=== PATIENT | male | born 1950 | race Caucasian/White ===

== ENCOUNTER → 2020-06-02 13:37 | Outpatient (CLI) | payer MEDICARE, OTHER | END | disposition home or self-care (01) | LOC: D.CT 13:00 | PROVIDERS: ATTEND Nurse Practitioner Family | DX: M54.5 Low back pain (principal) ==

== ENCOUNTER 2020-06-15 10:40 | Day surgery (SDC) | payer MEDICARE, OTHER ==
[~2020-06-15] VITALS: Ht 182.9 cm; Wt 105.6 kg
--- NOTE | ~2020-06-15 | HEMODYNAMI ---
PATIENT:ALBERTO CARRILLO MEDICAL RECORD: [id number] : 52 LOCATION:[facility] ADMISSION DATE: 06/15/20 Generatedon:113:31 Patient name: ALBERTO CARRILLO Patient #: [id number] SSN: B: 1950 Date of study: 06/15/2020 Page: Of Hemodynamic Procedure Report Patient Data Patient Demographics Procedure consent was obtained First Name: ALBERTO Gender: Male Last Name: GERARDO : 1950 Patient #: [id number] Age: 69 year(s) Race: Unknown Additional ID: [id number] Contact details [address]: [address] [place] [address] State: [place] City: [place] Zip code: [address] Past Medical History Performed procedures and imaging results Date Procedure Procedure Results Comments Stress testing Positive->Intermediate with SPECT MPI risk History of disease Date Diagnosis Comments CAD Allergies: No known allergies Admission Admission Data Admission Date: 06/15/2020 Admission Time: 10:40 Arrival Date: 06/15/2020 Arrival Time: 0:00 Height (in.): 72 BSA: 2.28 (m2) Height (cm.): 182.88 BMI: 31.69 (kg/m2) Weight (lbs.): 233.69 Weight (kg.): 106 Lab Results Lab Result Date: 06/15/2020 Lab Result Time: 0:00 Biochemistry Name Units Result Min Max BUN mg/dl 17 --(---*)-- 7 18 Creatinine mg/dl 0.8 --(-*--)-- 0.6 1.3 eGFR ml/min 90 --(*---)-- 90 120 NONAFRICAN CBC Name Units Result Min Max Hematocrit % 41.9 -*(----)-- 42 54 Hemoglobin g/dl 14.1 --(*---)-- 13.5 17.5 Procedure Procedure Types Cath Procedure Diagnostic Procedure [facility] w/Coronaries Aortic Root Angiography Sedation Charges Moderate Sedation 25-39 minutes Procedure Description Procedure Date Procedure Date: 06/15/2020 Procedure Start Time: 13:08 Procedure End Time: 13:29 Procedure Staff Name Function Ahsan Art MD Performing Physician Katrin Palomares RT Monitor Celeste Oates RT Scrub Sidra Ram RN Nurse Procedure Data Cath Procedure Fluoroscopy Diagnostic fluoroscopy Total fluoroscopy Time: 6.3 time: 6.3 min min Diagnostic fluoroscopy Total fluoroscopy dose: 806 dose: 806 mGy mGy Contrast Material Contrast Material Type Amount (ml) Isovue 300 82 Entry Location Entry Primary Successful Side Size Upsize Upsize Entry Closure Succes sful Closure Location (Fr) 1 (Fr) 2 (Fr) Remarks Device Remarks Radial Right 6 Fr artery Short Estimated blood loss: 10 ml Diagnostic catheters Device Type Used For End Catheter Placement DIAGNOSTIC [place] 110cm 5 Procedure Fr catheter ([id number]) DIAGNOSTIC AR MOD 5Fr Procedure Catheter ([id number]) DIAGNOSTIC AR2 MOD 5 Fr Procedure catheter ([id number]) DIAGNOSTIC Pigtail 5Fr Ventriculography catheter ([id number]) Procedure Complications No complications Procedure Medications Medication Administration Route Dosage Oxygen etCO2 Nasal cannula 2 l/min Lidocaine 2% added to field 20 Heparin Flush Bag added to field 2 bags (1000units/500ml NS) 0.9% NaCl I.V. 100 ml/hr Versed I.V. 1 mg Fentanyl I.V. 50 mcg Versed I.V. 1 mg Fentanyl I.V. 50 mcg Radial Cocktail I.A. 1 syringe (Verapamil 2mg/Nitro 400mcg/Heparin 1500units) Versed I.V. 1 mg Fentanyl I.V. 50 mcg Versed I.V. 1 mg Fentanyl I.V. 50 mcg Hemodynamics Rest BSA: 2.28 (m2) HGB: 14.1 (g/dl) O2 Consumption: Estimated: 247.58 (ml/min) O2 Co nsumption indexed: Estimated:108.59 (ml/min/m) Heart Rate: 50 (bpm) Pressure Samples Time Site Value (mmHg) Purpose Heart Use Rate(bpm) 13:10 LV 100/2,13 Snapshot 54 Gradients Valve Time Site Site Mean SEP/DFP Peak To Heart Use 1 2 (mmHg) (sec/min) Peak Rate (mmHg) (bpm) Aortic 13:11 LV AO 54 Snapshots Pre Cath Intra NCS Post Cath Vital Signs Time Heart Resp SPO2 etCO2 NIBP (mmHg) Rhythm Pain Sedation Rate (ipm) (%) (mmHg) Status Level (bpm) 12:56:14 49 15 100 37 141/75(120) SB 0 (11) 10(A) , No pain 13:00:26 50 11 97 38 122/71(97) SB 0 (11) 10(A) , No pain 13:04:46 51 11 97 39.5 128/68(97) SB 0 (11) 10(A) , No pain 13:09:02 53 13 97 36.6 126/70(104) SB 0 (11) 10(A) , No pain 13:13:16 56 11 96 41.8 104/60(80) SB 0 (11) 9(A) , No pain 13:17:30 55 12 96 42.5 100/64(85) SB 0 (11) 9(A) , No pain 13:21:44 56 12 94 13.4 117/60(73) SB 0 (11) 10(A) , No pain 13:26:00 54 8 96 42.5 114/63(89) SB 0 (11) 10(A) , No pain 13:30:18 54 8 96 16.4 110/59(89) SB 0 (11) 10(A) , No pain Medications Time Medication Route Dose Verified Delivered Reason Notes Effectiveness by by 12:58:48 Oxygen etCO2 2 l/min Ahsan Buffie used for Nasal Rubens Ram RN procedure cannula 12:58:56 Lidocaine 2% added 20ml Ahsan Ahsan for local to vial Rubens Art MD anesthetic field 12:59:01 Heparin Flush added 2 bags Ahsan Ahsan used for Bag to Rubens Art MD procedure (1000units/500ml field NS) 12:59:10 0.9% NaCl I.V. 100 Ahsan Buffie Per ml/hr Rubens Ram RN physician 13:00:44 Versed I.V. 1 mg Ahsan Buffie for sedation Rubens Ram RN 13:00:50 Fentanyl I.V. 50 mcg Ahsan Buffie for sedation Rubens Ram RN 13:05:06 Versed I.V. 1 mg Ahsan Buffie for sedation Rubens Ram RN 13:05:10 Fentanyl I.V. 50 mcg Ahsan Buffie for sedation Rubens Ram RN 13:10:00 Radial Cocktail I.A. 1 Ahsan Ahsan for (Verapamil syringe Rubnes Art MD vasodilation 2mg/Nitro 400mcg/Heparin 1500units) 13:10:05 Versed I.V. 1 mg Ahsan Buffie for sedation Rubens Ram RN 13:10:08 Fentanyl I.V. 50 mcg Ahsan Buffie for sedation Rubens Ram RN 13:20:42 Versed I.V. 1 mg Ahsan Buffie for sedation Rubens Ram RN 13:20:45 Fentanyl I.V. 50 mcg Ahsan Buffie for sedation Rubens Ram RN Procedure Log Time Note 12:31:33 Informed consent obtained and on chart 12:31:57 Procedure Status Elective Heart Cath (OP). 12:31:59 Time tracking: Regular hours (M-F 7:00 - 5:00) 12:32:03 Plan of Care:Hemodynamics will remain stable., Cardiac rhythm will remain stable., Comfort level will be maintained., Respiratory function will remain adequate., Patient/ family verbilizes understanding of procedure., Procedure tolerated without complication., Recovers from procedure without complications.. 12:32:59 H&P Date Dictated: 05/26/2020 Within 30 days and on chart., H&P Addendum completed by physician on day of procedure. (MUST COMPLETE FOR ALL OUTPATIENTS). 12:33:09 Patient allergic to No known allergies 12:35:52 Lab Result : BUN 17 mg/dl 12:35:52 Lab Result : eGFR NONAFRICAN 90 ml/min 12:35:52 Lab Result : Creatinine 0.8 mg/dl 12:35:52 Lab Result : Hematocrit 41.9 % 12:35:52 Lab Result : Hemoglobin 14.1 g/dl 12:35:59 Patient Weight : 233.69 lbs 12:36:03 Patient Height : 72 inches 12:36:09 Arrival Date: 06/15/2020 12:00:00 AM 12:39:12 Stress Test: yes; abnormal INFERIOR AND APICAL 12:39:55 Celeste Oates RT(R) sent for patient. Start room use. 12:48:05 Patient received from Pre/Post Procedure Room to CCL 1 Alert and oriented. Tansferred to table in Supine position. 12:48:06 Warm blankets applied, and desean hugger turned on for patient comfort. 12:48:06 Correct patient and procedure confirmed by team. 12:48:07 ECG and BP/O2 sat monitors applied to patient. 12:48:08 Pre-op teaching completed and patient verbalized understanding. 12:48:08 Pre-procedure instructions explained to patient. 12:48:10 Family in patients room. 12:48:11 Patient NPO since Midnight. 12:48:13 Is the patient allergic to Iodine/contrast media? No. 12:48:14 Is patient on blood thinner?Yes 12:48:29 LAST DOSE OF ELIQUIS ON SATURDAY 12:48:35 Patient diabetic? Yes. 12:48:36 If diabetic: On Metformin? Yes 12:48:39 If on Metformin: Last Dose? 06/13/2020 12:48:42 Previous problem with sedation/anesthesia? No ? 12:48:44 Snore? Yes 12:48:45 Sleep apnea? No 12:48:46 Deviated septum? No 12:48:49 Opens mouth fully? Yes 12:48:50 Sticks out tongue? Yes 12:48:52 Airway obstruction? No ? 12:48:54 Dentures? No ? 12:54:55 Vital chart was started 12:54:56 Baseline sample Acquired. 12:54:59 Rhythm: sinus bradycardia 12:55:00 Full Disclosure recording started 12:58:24 Patient pain scale 0/10 ?. 12:58:34 IV patent on arrival in left forearm with 0.9% NaCl at [facility]. 12:58:38 Lab results completed and on chart. 12:58:45 Right Radial & Right Groin area was prepped with chlora-prep and draped in sterile fashion 12:58:46 Alarms reviewed by R. N. 12:58:46 Sharps counted by scrub and verified by R.N. 12:58:47 Physician arrived 12:58:48 Oxygen 2 l/min etCO2 Nasal cannula was administered by Sidra Ram RN; used for procedure; Verbal order read back and verified. 12:58:49 --------ALL STOP TIME OUT------ 12:58:50 Final Timeout: patient, procedure, and site verified with staff and physician. All members of the team are in agreement. 12:58:53 Right Radial & Right Groin site verified by team. 12:58:56 Lidocaine 2% 20ml vial added to field was administered by Ahsan Art MD; for local anesthetic; Verbal order read back and verified. 12:58:59 Fire Safety Assessment: A--An alcohol-based skin anteseptic being used preoperatively., C--Open oxygen or nitrous oxide is being used., D--An ESU, laser, or fiber-optic light is being used. 12:59:01 Heparin Flush Bag (1000units/500ml NS) 2 bags added to field was administered by Ahsan Art MD; used for procedure; Verbal order read back and verified. 12:59:04 Physical assessment completed. ASA score P 2 - A patient with mild systemic disease as per Ahsan Art MD. 12:59:10 0.9% NaCl 100 ml/hr I.V. was administered by Sidra Ram RN; Per physician; Verbal order read back and verified. 12:59:12 1) 90+ Normal kidney functon but urine findings or structural abnormalities or genetic trait point to kidney disease. 12:59:18 Maximum allowable contrast dose (3.7 X eGFR X 0.75)250 ml. 12:59:25 Sedation plan: IV Moderate Sedation Medication:Versed, Fentanyl 12:59:41 Baseline sample Acquired. 12:59:55 Use device set Radial Dx or PCI 12:59:57 ACIST Syringe (59243) opened to sterile field. 12:59:57 Medline Cath Pack ([id number]) opened to sterile field. 12:59:58 Bag Decanter (2002) opened to sterile field. 12:59:58 ACIST Hand Control (75347) opened to sterile field. 12:59:59 ACIST Manifold (42950) opened to sterile field. 13:00:01 MBrace Wrist Support (078973825) opened to sterile field. 13:00:02 NEEDLE Cook 21G 4cm Radial (W44792) opened to sterile field. 13:00:06 EMERALD Guide Wire (502-643) opened to sterile field. 13:00:07 SHEATH 6FR RAIN (2526045) opened to sterile field. 13:00:44 Versed 1 mg I.V. was administered by Sidra Ram RN; for sedation; Verbal order read back and verified. 13:00:50 Fentanyl 50 mcg I.V. was administered by Sidra Ram RN; for sedation; Verbal order read back and verified. 13:05:06 Versed 1 mg I.V. was administered by Sidra Ram RN; for sedation; Verbal order read back and verified. 13:05:10 Fentanyl 50 mcg I.V. was administered by Sidra Ram RN; for sedation; Verbal order read back and verified. 13:07:47 Procedure started. 13:08:08 Local anesthetic to right radial artery with Lidocaine 2% by Ahsan Art MD.INITIAL ACCESS ONLY 13:08:25 A 6 Fr Short sheath was inserted into the Right Radial artery 13:08:47 Zero performed for pressure channel P1 13:10:00 Radial Cocktail (Verapamil 2mg/Nitro 400mcg/Heparin 1500units) 1 syringe I.A. was administered by Ahsan Art MD; for vasodilation; Verbal order read back and verified. 13:10:05 Versed 1 mg I.V. was administered by Sidra Ram RN; for sedation; Verbal order read back and verified. 13:10:08 Fentanyl 50 mcg I.V. was administered by Sidra Ram RN; for sedation; Verbal order read back and verified. 13:11:07 A DIAGNOSTIC Greenwood 110cm 5 Fr catheter (379594) was advanced over the wire and used for Procedure. 13:11:11 LV angiography performed. 13:11:26 EF : 60 % 13:12:15 LCA angiography performed. 13:13:58 Catheter removed. 13:14:13 A DIAGNOSTIC AR MOD 5Fr Catheter (195689T) was advanced over the wire and used for Procedure. 13:16:18 Catheter removed. 13:17:06 A DIAGNOSTIC AR2 MOD 5 Fr catheter (596596H) was advanced over the wire and used for Procedure. 13:17:18 RCA angiography performed. 13:18:36 Catheter removed. 13:19:01 A DIAGNOSTIC Pigtail 5Fr catheter (557004D) was advanced over the wire and used for Ventriculography. 13:20:42 Versed 1 mg I.V. was administered by Sidra Ram RN; for sedation; Verbal order read back and verified. 13:20:45 Fentanyl 50 mcg I.V. was administered by Sidra Ram RN; for sedation; Verbal order read back and verified. 13:21:46 Aortic Root visualized 13:22:48 Catheter removed. 13:24:24 ZEPHYR REGULAR TR BAND (228790) opened to sterile field. 13:25:04 Procedure ended.(Physican Out) 13:25:16 Fluoroscopy time 06.30 minutes. 13:25:48 Fluoroscopy dose: 806 mGy 13:25:48 Flurop Dose total: 806 13:25:55 Dose Area Product 70877 mGy/cm. 13:26:02 Contrast amount:Isovue 300 82ml. 13:26:05 Maximum allowable dose exceeded? No. 13:26:07 Sharps counted by scrub and verified by R.N. 13:26:10 [place] band inflated with 10cc of air. 13:26:12 Insertion/operative site no bleeding no hematoma. 13:26:50 Post-procedure physical assessment completed. ASA score P 3 - A patient with severe systemic disease as per Ahsan Art MD. 13:27:01 Post procedure rhythm: sinus rhythm 13:27:45 Estimated blood loss: 10 ml 13:27:51 Post procedure instruction explained to patient.Patient verbalizes understanding. 13:28:22 Procedure type changed to Cath procedure, Diagnostic procedure, LHC, C w/Coronaries, Aortic Root Angiography, Sedation Charges, Moderate Sedation 25-39 minutes 13:28:25 Procedure and supply charges have been captured, reviewed, submitted and are correct. 13:29:21 Procedure Complication : No complications 13:29:23 Vital chart was stopped 13:29:26 [facility] Findings: MVD- CABG consult 13:29:44 See physician's report for complete and final results. 13:29:47 Report given to Pre/Post Procedure Room. 13:29:51 Patient transfered to Pre/Post Procedure Room with Stretcher. 13:29:53 Procedure ended. 13:29:53 Full Disclosure recording stopped 13:29:56 End room use (Document Last) 13:30:31 End room use (Document Last) Device Usage Item Name Manufacture Quantity Catalog Hospital Part Current Minima l Lot# / Number Charge Number Stock Stock Serial# Code ACIST Acist 1 59911 [id number] 462319 255631 20 [employer] (92810) Reissued Inc Medline Medline 1 [id number] 129698 35271 104587 5 Cath Pack ([id number]) Bag Microtek 1 103352 18727 541840 5 Decanter Medical Inc. () ACIST Hand Acist 1 08624 986241 599447 813596 5 Control Medical (76300) Systems Inc ACIST Acist 1 13312 137203 021282 480516 5 Manifold Medical (21583) Systems Inc MBrace Advanced 1 140-0250-00 902231 60608 487341 5 Wrist Vascular Support Dynamics ([id number]) NEEDLE Cook Cook Medical 1 [id number] 284476 822381 690728 5 21G 4cm Radial (I85509) EMERALD Cardinal 1 502-455 842492 084069 941031 5 Guide Wire Health (502-455) SHEATH 6FR Cardinal 1 8971561 127338 9486041 885224 5 [facility] Health (4724555) DIAGNOSTIC Terumo 1 40-0715 671984 567038 731341 5 Greenwood 110cm 5 Fr catheter (526602) DIAGNOSTIC Cardinal 1 [id number] 775501 217049 598839 15 AR MOD 5Fr Health Catheter (414774U) DIAGNOSTIC Cardinal 1 238100A 132156 423620 602625 20 AR2 MOD 5 Health Fr catheter (520296J) DIAGNOSTIC Cardinal 1 [id number] 669156 876727 073260 5 Pigtail 5Fr Health catheter (869273H) ZEPHYR Cardinal 1 193289 775253 6506661 363494 5 REGULAR TR Health BAND (730735) Signature Audit Burton Stage Time Signature Unsigned Intra-Procedure 06/15/2020 Katrin Palomares 1:30:31 PM RT(R) Intra-Procedure 06/15/2020 Sidra Ram RN 1:30:56 PM Intra-Procedure 06/15/2020 Ahsan Art MD 1:31:44 PM [facility] [address] [place] [address]
[2020-06-15 11:22] VITALS: BP 146/70; Ht 182.9 cm; Wt 105.6 kg
[2020-06-15] MEDS ORDERED: XANAX1 MG PO (11:33)
[2020-06-15] MEDS ORDERED: ELIQUIS5 MG PO (11:33)
[2020-06-15] MEDS ORDERED: COZAAR100 MG PO (11:35)
[2020-06-15] MEDS ORDERED: ZOCOR20 MG PO (11:35)
[2020-06-15] MEDS ORDERED: STERAPRED 5MG 65 M1 PO (11:35)
[2020-06-15] MEDS ORDERED: LINZESS72 MCG PO (11:36)
[2020-06-15] MEDS ORDERED: MOBIC7.5 MG PO (11:37)
[2020-06-15] MEDS ORDERED: PROTONIX40 MG PO (11:37)
[2020-06-15] MEDS ORDERED: GLUCOPHAGE500 MG PO (11:37)
[2020-06-15] MEDS ORDERED: HYDROCHLOROTH12.5 M1 PO (11:38)
[2020-06-15] MEDS ORDERED: TRUSOPT 2 % OPT10 ML EACH EYE (11:42)
[2020-06-15 11:55] LABS: BASOPHILS 0.4 % (0-2); EOSINOPHILS 2.1 % (0-7); HEMATOCRIT 41.9 % (42.0-54.0); HEMOGLOBIN 14.1 g/dL (13.5-17.5); IMMATURE GRANULOCYTES 0.1 % (0-5); LYMPHOCYTE ABS# 1.49 10x3/uL (1.32-3.57); LYMPHOCYTES 21.9 % (15-50); MCH 30.1 pg (26.0-34.0); MCHC 33.7 g/dL (31.0-37.0); MCV 89.5 fL (80.0-100.0); MEAN PLATELET VOLUME 8.6 fL (7.4-10.4); MONOCYTES 10.2 % (2-11); NEUTROPHIL ABS# 4.43 10x3/uL (1.78-5.38); NEUTROPHILS 65.3 % (40-80); PLATELET COUNT 158 10x3/uL (130-400); RBC 4.68 10x6/uL (4.20-6.10); RDW 13.6 % (11.5-14.5); WBC 6.8 10x3/uL (4.8-10.8)
[2020-06-15 11:57] LABS: ALT (SGPT) 48 U/L (10-68); CALC OSMOLALITY 284 mosm/kg (275-300); CALCIUM 8.8 mg/dL (8.5-10.1); CARBON DIOXIDE 25.9 mmol/L (21.0-32.0); CHLORIDE - SERUM 105 mmol/L (98-107); CHOL - HDL RATIO 4.3 ratio (2.3-4.9); CHOLESTEROL, TOTAL 179 mg/dL (0-200); CREATININE - SERUM 0.8 mg/dL (0.6-1.3); GLUCOSE 142 mg/dL (74-106); HDL CHOLESTEROL 42 mg/dL (32-96); LDL CHOLESTEROL 93 mg/dL (0-100); LDL-HDL RATIO 2.2 ratio (1.5-3.5); POTASSIUM - SERUM 4.1 mmol/L (3.5-5.1); SODIUM 141 mmol/L (136-145); TRIGLYCERIDE 224 mg/dL (30-200); UREA NITROGEN 17 mg/dL (7-18); eGFR NON AFRICAN AMERICAN > 90 mL/min (90-120)
--- NOTE | 2020-06-15 13:39 | NUR ---
ARRIVES TO ROOM VIA STRETCHER S/P HEART CATH. SEE REGISTERED NURSE SURGICAL SERVICES, PT ON MONITORS APPLIED ALARMS ON, IV INFUSING PER ORDERS, DENIES PAIN OR NEEDS AT PRESENT, SPOUSE AT BEDSIDE, CALL LIGHT WITHIN REACH, SPRITE GIVEN PER PT REQUEST
--- NOTE | 2020-06-15 13:55 | NUR ---
RESTING QUIETLY , SITTING UP RIGHT, VSS, SB NO ECTOPY, RIGHT WRIST WITH ZBAND IN PLACE NO BLEEDING OR OOZING , RADIAL PULSE PALPABLE, CAP REFILL WNL , MOVES DIGITS , DENIES PAIN OR NEEDS, IV INFUSING PER ORDERS, SPOUSE AT BEDSIDE, CALL LIGHT WITHIN REACH
--- NOTE | 2020-06-15 14:10 | NUR ---
AAOX3,VSS, SB WITH NO ECTOPY BP 163/89, RIGHT WRIST ZBAND C/D/I NO BLEEDING OR OOZING NOTED, RADIAL PULSE PALPABLE, CAP REFILL WNL, MOVES ALL DIGITS , DENIES PAIN OR NEEDS, IV INFUSING PER ORDERS, DENIES BATHROOM NEEDS, SPOUSE IN ROOM , UP DATED ON PLAN OF CARE AND DISCHARGE TIME , CALL LIGHT WITHIN REACH
--- NOTE | 2020-06-15 14:25 | NUR ---
EYES CLOSED AROUSES EASILY, VSS , SB, RIGHT WRIST ZBAND INPLACE NO BLEEDING OR OOZING NOTED, RADIAL PULSE PALPABLE, ARM WARM AND DRY, CAP REFILL WNL, MOVES ALL DIGITS , PT DENIES PAIN OR NEEDS, IV INFUSING PER ORDERS, CALL LIGHT WITH IN REACH, DENIES BATHROOM NEEDS AT PRESENT
--- NOTE | 2020-06-15 15:00 | NUR ---
DR GUEVARA AT BEDSIDE TO SEE PT AND SPOUSE
--- NOTE | 2020-06-15 15:00 | NUR ---
3CC AIR RELEASED FROM ZBAND NO BLEEDING OR OOZING NOTED, RADIAL PULSE PALPABLE, CAP REFILL WNL, MOVES ALL DIGITS, DENIES PAIN. CALL LIGHT WITHIN REACH
--- NOTE | 2020-06-15 15:30 | NUR ---
AWAKE AND ALWERT , VSS, SB, RIGHT WRIST STABLE WITH NO BLEEDING OR OOZING RADIAL PULSE PALABLE, CAP REFILL WNL, MOVES ALL DIGITS, WARM ARM WITH INTACT SENSATION, REMAINING 4CC AIR RELEASED FROM ZBAND WITH NO BLEEDING OR OOZING , IV INFUSING PER ORDERS, DISCHARGE TEACHING STARTED, PT DENIES PAIN OR NEEDS, PT UP TO DRESS AND AMBULATED TO BATHROOM TO VOID WITHOUT DIFFICULTY , CALL LIGHT WITHIN REACH
--- NOTE | 2020-06-15 15:45 | NUR ---
IV REMOVED PER ORDERS CATHETER INTACT 2 X 2 DRESSING PLACED. RIGHT WRIST WITH ALL AIR REMOVED FROM ZBAND WITHOUT BLEEDING OR OOZING , RADIAL PULSE PALPABLE CAP REFILL WNL MOVES ALL DIGITS , DENIES PAIN OR NEEDS, DISCHARGE TEACHING IS COMPLETE PT AND SPOUSE VERBALIZED UNDERSTANDING , ALL QUESTIONS AND CONCERNS ADDRESSED, VSS, SB PER MONITOR.
--- NOTE | 2020-06-15 16:00 | NUR ---
PT DISCHARGED PER ORDERS, TAKEN TO PRIVATE VEHICLE VIA WHEELCHAIR, PT VOICED NO COMPLAINTS , DENIES PAIN OR NEEDS.
== END 2020-06-15 16:00 | disposition home or self-care (01) ==
LOC: D.CATH 10:40
PROVIDERS: ATTEND Internal Medicine Cardiovascular Disease
DX: I20.8 Other forms of angina pectoris (principal); R94.39 Abnormal result of other cardiovascular function study; I48.91 Unspecified atrial fibrillation; I73.9 Peripheral vascular disease, unspecified; R06.09 Other forms of dyspnea

== ENCOUNTER 2020-07-12 11:44 | Inpatient (IN) | payer MEDICARE, OTHER ==
[2020-07-11 14:37] LABS: BILIRUBIN NEGATIVE (NEGATIVE); KETONE NEGATIVE (NEGATIVE); NITRITE NEGATIVE (NEGATIVE); UROBILINOGEN NORMAL mg/dL (< 2)
[2020-07-11 14:41] LABS: WHITE CELLS - URINE 0-5 HPF (0-1)
[2020-07-11 14:42] LABS: BACTERIA FEW HPF (NONE SEEN); SQUAMOUS EPITHELIAL NONE SEEN HPF (0-4)
[2020-07-11 15:32] LABS: BASOPHILS 0.3 % (0-2); EOSINOPHILS 1.2 % (0-7); HEMATOCRIT 43.4 % (42.0-54.0); HEMOGLOBIN 14.8 g/dL (13.5-17.5); IMMATURE GRANULOCYTES 0.1 % (0-5); LYMPHOCYTE ABS# 1.26 10x3/uL (1.32-3.57); LYMPHOCYTES 18.7 % (15-50); MCH 30.8 pg (26.0-34.0); MCHC 34.1 g/dL (31.0-37.0); MCV 90.2 fL (80.0-100.0); MEAN PLATELET VOLUME 8.8 fL (7.4-10.4); MONOCYTES 9.1 % (2-11); NEUTROPHIL ABS# 4.76 10x3/uL (1.78-5.38); NEUTROPHILS 70.6 % (40-80); PLATELET COUNT 158 10x3/uL (130-400); RBC 4.81 10x6/uL (4.20-6.10); RDW 13.3 % (11.5-14.5); WBC 6.7 10x3/uL (4.8-10.8)
[2020-07-11 15:40] LABS: APTT 30.8 SECONDS (22.8-39.4); INR 1.07 (0.85-1.17); PROTIME 12.8 SECONDS (11.6-15.0)
[2020-07-11 16:31] LABS: ALBUMIN 4.1 g/dL (3.4-5.0); ALKALINE PHOSPHATASE 73 U/L (30-120); ALT (SGPT) 35 U/L (10-68); BILIRUBIN - TOTAL 1.04 mg/dL (0.2-1.3); CALC OSMOLALITY 284 mosm/kg (275-300); CALCIUM 8.9 mg/dL (8.5-10.1); CARBON DIOXIDE 28.8 mmol/L (21.0-32.0); CHLORIDE - SERUM 103 mmol/L (98-107); CHOLESTEROL, TOTAL 164 mg/dL (0-200); CREATININE - SERUM 0.8 mg/dL (0.6-1.3); GLUCOSE 113 mg/dL (74-106); PHOSPHOROUS 3.9 mg/dL (2.5-4.9); POTASSIUM - SERUM 4.4 mmol/L (3.5-5.1); PRO BNP 31 pg/mL (0-125); SODIUM 142 mmol/L (136-145); T4 THYROXIN - FREE 0.95 ng/dL (0.76-1.46); THYROID STIMULATING HORMONE 1.25 uIU/mL (0.36-3.74); UREA NITROGEN 16 mg/dL (7-18); URIC ACID 4.5 mg/dL (2.6-7.2); eGFR NON AFRICAN AMERICAN > 90 mL/min (90-120)
[~2020-07-12] VITALS: Ht 182.9 cm; Wt 110.6 kg
[~2020-07-12 11:44] MED LIST: BAYER CHEWABLE81 MG PO; COZAAR100 MG PO; ELIQUIS5 MG PO; GLUCOPHAGE500 MG PO; HYDROCHLOROTH12.5 M1 PO; LINZESS72 MCG PO; MOBIC7.5 MG PO; PROTONIX40 MG PO; STERAPRED 5MG 65 M1 PO; TRUSOPT 2 % OPT10 ML EACH EYE; XANAX1 MG PO; ZOCOR20 MG PO
[2020-07-14] VITALS (45 sets, daily range): BP systolic 109–145; BP diastolic 42–75; BMI 31.0; BMI 30.8
[2020-07-14] MEDS ORDERED: ELIQUIS5 MG PO (06:16)
[2020-07-14 06:25] LABS: BILIRUBIN NEGATIVE (NEGATIVE); KETONE NEGATIVE (NEGATIVE); NITRITE NEGATIVE (NEGATIVE); UROBILINOGEN NORMAL mg/dL (< 2)
[2020-07-14 06:26] LABS: BACTERIA FEW HPF (NONE SEEN)
--- NOTE | 2020-07-14 07:39 | NUR ---
CVL AND ARTERIAL LINE PLACED BY ANESTHESIA, SCD AND STOCKING PLACED POST OP, JOSE.
[2020-07-14 12:05] LABS: INR 1.54 (0.85-1.17); PROTIME 17.1 SECONDS (11.6-15.0)
--- NOTE | 2020-07-14 13:15 | NUR ---
ARRIVED TO UNIT AT 1300 VIA BED. CONNECTED TO SKID WRAPPER. TPM CONNECTED BUT CURRENTLY OFF. ETT 8.0 26 LIP LINE. MIDSTERNAL INCISION GO. SUBTERNAL CT TO 20CM SUCTION, NU DRAIN IN PLACE, DRESSING C/D/I. RLE HARVEST SITES WITH COBAN DRESSING. RIGHT RADIAL JENNI IN PLACE. [place] CATHETER WITH CLEAR YELLOW URINE. JIMENEZ HOSE AND SCD ON LLE. RIJ CVL WITH PLASMOLYE AT 100ML/HR, NITROGLYCERIN AT 33.3MCG/MIN. PT SLIGHTLY ANXIOUS. WRIST RESTRAINTS APPLIED ON ARRIVAL PER ORDER. SAFETY MEASURES IN PLACE. NURSE AT BEDSIDE FOR CLOSE MONITORING.
[2020-07-14 13:25] LABS: BASOPHILS 0.1 % (0-2); EOSINOPHILS 0.3 % (0-7); HEMATOCRIT 35.3 % (42.0-54.0); IMMATURE GRANULOCYTES 0.3 % (0-5); LYMPHOCYTE ABS# 1.56 10x3/uL (1.32-3.57); LYMPHOCYTES 10.6 % (15-50); MCH 30.7 pg (26.0-34.0); MCV 90.3 fL (80.0-100.0); MEAN PLATELET VOLUME 8.7 fL (7.4-10.4); MONOCYTES 10.3 % (2-11); NEUTROPHIL ABS# 11.52 10x3/uL (1.78-5.38); NEUTROPHILS 78.4 % (40-80); PLATELET COUNT 133 10x3/uL (130-400); RBC 3.91 10x6/uL (4.20-6.10); RDW 13.5 % (11.5-14.5); WBC 14.7 10x3/uL (4.8-10.8)
[2020-07-14 13:34] LABS: APTT 28.2 SECONDS (22.8-39.4); INR 1.34 (0.85-1.17); PROTIME 15.4 SECONDS (11.6-15.0)
--- NOTE | 2020-07-14 13:51 | NUR ---
Dr. Ruiz aware of ABG results. Ordered 20meq kcl to be given over 1hr.
--- NOTE | 2020-07-14 15:07 | NUR ---
CARDIOLOGY PAGED AT THIS TIME. WAITING CHIEF INTERNAL AUDITOR BACK.
--- NOTE | 2020-07-14 15:12 | NUR ---
CALLBACK RECEIVED FROM DR. STEELE WITH CARDIOLGY. NOTIFIED HIM OF CONSULT.
--- NOTE | 2020-07-14 15:40 | NUR ---
PLACED ON SPONTANEOUS TRIAL AT THIS TIME.
--- NOTE | 2020-07-14 16:48 | NUR ---
EXTUBATED AT THIS TIME. PLACED ON 4L O2 VIA NC. RESTRAINTS DISCONTINUED. LOPRESSOR WAS GIVEN PER ORDER. WILL CONTINUE TO MONITOR.
--- NOTE | 2020-07-14 18:20 | NUR ---
PT REPORTED PAIN BACK UP TO 8. ANOTHER DOSE OF MORPHINE GIVEN PER ORDER. WILL CONTINUE TO MONITOR.
--- NOTE | 2020-07-14 18:53 | NUR ---
BLOOD GLUCOSE WENT UP TO 220. RECHECKED IN 15MIN, WAS BACK DOWN TO 190. DR. TA NOTIFIED. INSULIN DRIP INITIATED PER PROTOCOL.
[2020-07-15] VITALS (24 sets, daily range): BP systolic 89–143; BP diastolic 54–76; Ht 182.9 cm; Wt 110.6 kg
[2020-07-15 04:03] LABS: HEMOGLOBIN 11.6 g/dL (13.5-17.5); MCHC 34.1 g/dL (31.0-37.0); MCV 90.9 fL (80.0-100.0); MEAN PLATELET VOLUME 8.7 fL (7.4-10.4); RBC 3.74 10x6/uL (4.20-6.10); RDW 13.5 % (11.5-14.5); WBC 9.7 10x3/uL (4.8-10.8)
[2020-07-15 04:24] LABS: ALKALINE PHOSPHATASE 43 U/L (30-120); ALT (SGPT) 24 U/L (10-68); BILIRUBIN - TOTAL 1.61 mg/dL (0.2-1.3); CALC OSMOLALITY 286 mosm/kg (275-300); CARBON DIOXIDE 24.4 mmol/L (21.0-32.0); CHLORIDE - SERUM 108 mmol/L (98-107); CREATININE - SERUM 0.7 mg/dL (0.6-1.3); GLUCOSE 120 mg/dL (74-106); POTASSIUM - SERUM 3.9 mmol/L (3.5-5.1); PROTEIN - SERUM 5.4 g/dL (6.4-8.2); SODIUM 143 mmol/L (136-145); UREA NITROGEN 15 mg/dL (7-18); eGFR NON AFRICAN AMERICAN > 90 mL/min (90-120)
[2020-07-15 04:29] LABS: CALCIUM 6.9 mg/dL (8.5-10.1)
--- NOTE | 2020-07-15 07:15 | NUR ---
REPORT RECEIVED. ASSESSMENT COMPLETE PER FLOW SHEET. PT DENIES NEEDS. VSS.
--- NOTE | 2020-07-15 07:50 | NUR ---
POTASSIUM NOTED AT 3.9 PER PROTOCOL 5MEQ OF POTASSIUM INFUSED VIA R IJ CVL. NEEDS MET.
--- NOTE | 2020-07-15 07:56 | OP ---
PATIENT NAME: ALBERTO CARRILLO MEDICAL RECORD: [id number] :52 LOCATION:D.CVI D.CV05 ADMISSION DATE:07/14/20 SURGEON: HUGO TA MD DATE OF OPERATION: 07/14/2020 SURGEON: Hugo Ta MD PROCEDURES PERFORMED: 1. Coronary artery bypass graft times 3 (left internal mammary artery to LAD, reverse saphenous vein graft from aorta to obtuse marginal, aorta to posterior descending artery). 2. Endoscopic saphenous vein harvest. 3. Pulmonary vein radiofrequency ablation bilaterally. 4. Left atrial appendage occlusion device application. PREOPERATIVE DIAGNOSES: Coronary artery disease, chronic obstructive pulmonary disease, history of atrial fibrillation and history of embolic retinal stroke. POSTOPERATIVE DIAGNOSES: Coronary artery disease, chronic obstructive pulmonary disease, history of atrial fibrillation and history of embolic retinal stroke. ANESTHESIA: General endotracheal anesthesia. ESTIMATED BLOOD LOSS: Total cardiopulmonary bypass with 1 liter of Cell Saver. TRANSFUSIONS: One platelet, two FFP. SPECIMENS: None. COMPLICATIONS: None. CONDITION: Stable. DISPOSITION: CV ICU. OPERATIVE FINDINGS: 1. Transesophageal echocardiography revealed no aortic stenosis, no aortic insufficiency, increased left ventricular end-diastolic dimension greater than 6 cm. There was good contractility after exit from cardiopulmonary bypass. 2. Good quality greater saphenous vein harvested endoscopically in right lower extremity. 3. Good quality left internal mammary artery. 4. Persistent left superior vena cava, but also a moderate sized innominate vein. 5. Radiofrequency ablation of bilateral pulmonary veins. 6. Application of 35-mm left atrial appendage clip device. 7. LAD 1.5-mm with severe disease, significantly worse than expected from the angiogram. 8. Obtuse marginal is 2.5-mm. 9. Posterior descending artery is 1.5-mm with severe disease. The right coronary artery was calcified throughout. Access to the posterior descending artery proximally was gained by dividing the posterior descending vein as the more distal posterior descending had severe diabetic type disease. PROCEDURE INDICATIONS: Coronary artery disease, COPD, history of atrial OPERATIVE REPORT [id number] ALBERTO CARRILLO fibrillation, history of embolic stroke. DESCRIPTION OF PROCEDURE: The patient was brought to the operating suite. General anesthesia was obtained. The patient was prepped and draped. Greater saphenous vein harvested endoscopically from the right lower extremity. Side branches were divided with electrocautery. The vessel was ligated proximally and distally removed. Side branches were tied and thin sites were oversewn. The leg was irrigated and closed in 2 layers. Median sternotomy incision was made. Subcutaneous tissue was divided. Sternum was divided with a saw. Left hemisternum was elevated. Left pleural cavity was entered. Left internal mammary artery and vein was taken down as a pedicle graft. Sternal retractor was placed. Pericardium was opened. Heparin was given. Aorta was cannulated. Dual stage venous cannula was inserted. The internal mammary was clipped distally and made ready for anastomosis. Activated clotting time was appropriately elevated. The patient was placed on cardiopulmonary bypass. Heart was elevated and sites for distal anastomoses were selected. Left superior vena cava was encountered. Both pulmonary veins were encircled and the AtriCure radiofrequency ablation device was deployed three times on each side. Left atrial appendage clip was applied. The patient's temperature was then cold. Antegrade cardioplegia cannula was inserted. Crossclamp was placed. Cardioplegia was given antegrade, returned from the left superior vena cava was controlled with a bulldog. Distal anastomosis was performed in a standard technique. Proximal anastomosis with single cross-clamp technique. Aortic root de-aired. Proximal anastomosis was tied down. Vein graft was de-aired and flow restored. Proximal and distal anastomotic sites were inspected for bleeding, single 6-0 for proximals. The patient retuned to spontaneous rhythm after defibrillation times 1. Atrial and ventricular pacing wires were placed. The patient was fully rewarmed, weaned from cardiopulmonary bypass and was stable. The patient was decannulated. Grafts were inspected for patency and proximal and distal anastomotic sites were again inspected. Protamine was given. Thorough irrigation was undertaken and hemostasis was assured. A drain was placed in the mediastinum and left pleural cavity. The patient was initially atrially paced. Pericardial fat was loosely reapproximated in the midline. Left chest was evacuated and irrigated. The internal mammary harvest site inspected for bleeding. Sternum was closed with wires and 2 sternal plates. The fascia was closed. Subcutaneous tissues were closed. Skin was closed. Dermabond was placed. Needle and sponge counts were reported as correct and the patient was taken to the ICU in stable condition. TRANSINT:[id number] Voice Confirmation ID: [id number] DOCUMENT ID: [id number] HUGO TA MD at 0756 CC: HERI GUEVARA M.D. and WENDY CAMACHO VEGETABLE GRADER [id number] DICTATION DATE: 07/14/20 1339 RESIDENTIAL BUILDING INSPECTOR: 07/14/20 1414 ADM IN [facility] [address] [id number]
--- NOTE | 2020-07-15 08:20 | NUR ---
DR TA AT BEDSIDE NEW ORDERS RECEIVED TO [place] FLUIDS, KEEP [place] PALAFOX TPM WIRE CONNECTORS KEEP TPM WIRES, REMOVE CT FROM SUCTION. CT NOW TO WATER SEAL, SUBSTERNAL DSG CHANGE ADM, FLUIDS D.C.'D AT THIS TIME.
--- NOTE | 2020-07-15 09:20 | NUR ---
DR JOHNSON AT BEDSIDE NO NEW ORDERS RECEIVED. PT C/O OF PALAFOX CATH AND CVL. STATED WOULD ASK DR TA IF POSSIBLE TO [place].C.
--- NOTE | 2020-07-15 10:15 | NUR ---
PT ATE 20% CLD FOR BREAKFAST. C/O OF DIET. ADELA DUENAS WITH DR TA MADE AWARE DIET CHANGED TO AHA CARDIAC DIET AT THIS TIME.
--- NOTE | 2020-07-15 10:40 | NUR ---
ASSISTED OOC TO BATHROOM PASSED GAS NO BM AT THIS TIME. PT BACK TO CHAIR WITHOUT DIFFICULTY.
--- NOTE | 2020-07-15 12:03 | NUR ---
PT SON AT BEDSIDE. PT C/O OF CP 01/01 REQUESTS MORPHINE. GIVEN UPON REQUEST.
--- NOTE | 2020-07-15 12:59 | NUR ---
PT C/O OF PAIN 11/01 MINIMAL RELIEF FROM MORPHINE. REQUESTS MORE MORPHINE WITH ADDITIONAL PAIN PILL WELL. STATED UNABLE TO DO SO AT THIS TIME. PRN PERCOCET GIVEN PER REQUEST.
--- NOTE | 2020-07-15 13:20 | NUR ---
PT STATED PAIN RELIEVED FROM PERCOCET. DENIES FURTHER NEEDS
--- NOTE | 2020-07-15 20:00 | NUR ---
PATIENT RESTING WITH EYES CLOSED. EASILY ROUSED AND ALERT. TALKATIVE. AT BEDSIDE, QUESTIONS ANSWERED. ASSESSMENT PERFORMED WITH NO ACUTE DISTRESS OBSERVED. MONITORS CONNECTED TO PATIENT WITH ALARMS SET. VSS. NSR ON MONITOR. MEDIATSTINAL CT TO WATERSEAL DRAINING SMALL AMOUNT SEROSANG FLUID INTO COLLECTION CHAMBER. NU DRAIN INTACT/SECURE/PATENT/COMPRESSED WITH MODERATE AMOUNT OF SEROSANG DRAINAGE IN BULB. CALL LIGHT IN EASY REACH AND PATIENT ABLE TO UTILIZE TO MAKE NEEDS KNOWN.
[2020-07-16] VITALS (24 sets, daily range): BP systolic 94–140; BP diastolic 34–87
[2020-07-16 06:41] LABS: HEMATOCRIT 31.5 % (42.0-54.0); HEMOGLOBIN 10.4 g/dL (13.5-17.5); MCH 30.4 pg (26.0-34.0); MCV 92.1 fL (80.0-100.0); MEAN PLATELET VOLUME 8.9 fL (7.4-10.4); RBC 3.42 10x6/uL (4.20-6.10); RDW 13.8 % (11.5-14.5); WBC 11.3 10x3/uL (4.8-10.8)
[2020-07-16 07:35] LABS: ALBUMIN 2.6 g/dL (3.4-5.0); ALKALINE PHOSPHATASE 57 U/L (30-120); BILIRUBIN - TOTAL 1.53 mg/dL (0.2-1.3); CALC OSMOLALITY 276 mosm/kg (275-300); CALCIUM 7.5 mg/dL (8.5-10.1); CARBON DIOXIDE 28.1 mmol/L (21.0-32.0); CHLORIDE - SERUM 103 mmol/L (98-107); CREATININE - SERUM 0.7 mg/dL (0.6-1.3); GLUCOSE 120 mg/dL (74-106); POTASSIUM - SERUM 3.9 mmol/L (3.5-5.1); PROTEIN - SERUM 5.5 g/dL (6.4-8.2); SODIUM 138 mmol/L (136-145); UREA NITROGEN 12 mg/dL (7-18); eGFR NON AFRICAN AMERICAN > 90 mL/min (90-120)
[2020-07-16 07:36] LABS: ALT (SGPT) 34 U/L (10-68)
--- NOTE | 2020-07-16 07:46 | NUR ---
IS ATTEMPT 750. PT PERFORMS WHEN INSTRUCTED TO AND INDEPENDENTLY.
--- NOTE | 2020-07-16 09:45 | NUR ---
SITTING UP IN CHAIR AWAKE WATCHING TV AT THIS TIME. PT DENIES ANY NEEDS. VSS. CALL LIGHT AND PERSONAL ITEMS IN REACH. WILL CONTINUE PLAN OF CARE.
--- NOTE | 2020-07-16 11:15 | NUR ---
CHEST TUBES HAVE BEEN DCD BY DR TA. NU DRAIN AND TPM WIRES ARE STILL IN PLACE. DRESSING CHANGED. SITES ARE WDL. NO ACUTE DISTRESS NOTED. WILL CONTINUE PLAN OF CARE.
--- NOTE | 2020-07-16 11:46 | NUR ---
ASSISTED PT BACK TO CHAIR FROM BED AT THIS TIME VIA MINIMAL ASSIST. VSS. NO ACUTE DISTRESS NOTED. WILL CONTINUE PLAN OF CARE.
--- NOTE | 2020-07-16 13:22 | NUR ---
SITTING UP IN CHAIR VISITING WITH FAMILY AT THIS TIME. VSS. NO ACUTE DISTRESS NOTED. CALL LIGHT AND PERSONAL ITEMS IN REACH. WILL CONTINUE PLAN OF CARE.
--- NOTE | 2020-07-16 18:14 | NUR ---
LYING IN BED AT THIS TIME VISITING WITH . HE DENIES ANY NEEDS OR DISCOMFORTS. VSS. WILL CONTINUE PLAN OF CARE.
--- NOTE | 2020-07-16 19:00 | NUR ---
RESTING WITH EYES CLOSED. EASILY ROUSED AND ALERT. ORIENTED X 4. ASSESSMENT COMPLETED PER FLOW SHEET WITH NO ACUTE DISTRESS OBSERVED. MONITORS CONNECTED TO PATIENT WITH ALARMS SET. VSS. NSR ON MONITOR. RT LATERAL CHEST TUBE INTACT/SECURE/PATENT. CT CONNECTED TO 20 CM WALL SUCTION DRAINING SMALL AMOUNT OF SEROSANG FLUID INTO COLLECTION CHAMBER. Epidural intact/secure/patent. CALL LIGHT IN REACH AND ABLE TO UTILIZE TO MAKE NEEDS KNOWN.
[2020-07-17] VITALS (30 sets, daily range): BP systolic 82–139; BP diastolic 30–78
[2020-07-17 02:19] LABS: ALBUMIN 2.4 g/dL (3.4-5.0); ALKALINE PHOSPHATASE 76 U/L (30-120); BILIRUBIN - TOTAL 1.13 mg/dL (0.2-1.3); CALCIUM 7.7 mg/dL (8.5-10.1); CHLORIDE - SERUM 101 mmol/L (98-107); GLUCOSE 117 mg/dL (74-106); POTASSIUM - SERUM 3.9 mmol/L (3.5-5.1); PROTEIN - SERUM 5.6 g/dL (6.4-8.2); SODIUM 137 mmol/L (136-145)
[2020-07-17 02:26] LABS: ALT (SGPT) 46 U/L (10-68); CALC OSMOLALITY 276 mosm/kg (275-300); CREATININE - SERUM 0.9 mg/dL (0.6-1.3); UREA NITROGEN 18 mg/dL (7-18); eGFR NON AFRICAN AMERICAN 89 mL/min (90-120)
[2020-07-17 06:01] LABS: HEMATOCRIT 29.4 % (42.0-54.0); HEMOGLOBIN 9.6 g/dL (13.5-17.5); MCH 29.8 pg (26.0-34.0); MCHC 32.7 g/dL (31.0-37.0); MCV 91.3 fL (80.0-100.0); MEAN PLATELET VOLUME 8.9 fL (7.4-10.4); RBC 3.22 10x6/uL (4.20-6.10); RDW 13.8 % (11.5-14.5); WBC 9.9 10x3/uL (4.8-10.8)
--- NOTE | 2020-07-17 09:01 | NUR ---
PT CONVERTED FROM NS TO AFIB WITH RATE OF 130'S @ 0859. KNOW NOW ONSET. AMIODARONE DRIP INFUSING, METOPROLOL 12.5MG TABLET ADMIN WIHT AM MEDS. WILL CONTINUE TO MONITOR.
--- NOTE | 2020-07-17 20:00 | NUR ---
AWAKE AND ALERT. ORIENTED X 4. TALKATIVE. AT BEDSIDE. QUESTIONS ANSWERED. PATIENT REPORTS FEELING MORE "BACK TO NORMAL" TODAY. ASSESSMENT COMPLETED PER FLOW SHEET WITH NO ACUTE DISTRESS OBSERVED. MONITORS CONNECTED TO PATIENT WITH ALARMS SET. VSS. NSR ON MONITOR. NU DRAIN INTACT/SECURE/PATENT AND COMPRESSED WITH SMALL AMOUNT OF SEROSANG FLUID IN BULB. CALL LIGHT IN REACH AND ABLE TO UTILIZE TO MAKE NEEDS KNOWN.
[2020-07-18] VITALS (20 sets, daily range): BP systolic 88–129; BP diastolic 46–73
[2020-07-18 06:10] LABS: HEMATOCRIT 28.2 % (42.0-54.0); HEMOGLOBIN 9.3 g/dL (13.5-17.5); MCH 30.1 pg (26.0-34.0); MCV 91.3 fL (80.0-100.0); RBC 3.09 10x6/uL (4.20-6.10); RDW 14.1 % (11.5-14.5); WBC 8.6 10x3/uL (4.8-10.8)
[2020-07-18 06:51] LABS: ALBUMIN 2.4 g/dL (3.4-5.0); ALKALINE PHOSPHATASE 128 U/L (30-120); BILIRUBIN - TOTAL 0.67 mg/dL (0.2-1.3); CALC OSMOLALITY 276 mosm/kg (275-300); CALCIUM 8.4 mg/dL (8.5-10.1); CARBON DIOXIDE 28.8 mmol/L (21.0-32.0); CHLORIDE - SERUM 101 mmol/L (98-107); CREATININE - SERUM 0.9 mg/dL (0.6-1.3); GLUCOSE 134 mg/dL (74-106); POTASSIUM - SERUM 4.1 mmol/L (3.5-5.1); PROTEIN - SERUM 6.1 g/dL (6.4-8.2); SODIUM 136 mmol/L (136-145); UREA NITROGEN 20 mg/dL (7-18); eGFR NON AFRICAN AMERICAN 89 mL/min (90-120)
[2020-07-18 06:52] LABS: ALT (SGPT) 70 U/L (10-68)
--- NOTE | 2020-07-18 11:17 | NUR ---
Nutrition Follow-up: POD 4 CABG. Good/fair PO intake. -BM; Linzess was added. Diet: Cardiac, Carb Consistent PO intake: 50-100% Wt: 233# (07/18); 227# (07/14) Labs noted: Glu 134, Ca 8.4, Alb 2.4 Meds noted: Micro K, Glucophage, Protonix, Colace, Senokot, Linzess -Encourage PO intake and honor food preferences within diet restrictions. -RD follow-up: 07/20
[2020-07-19] VITALS (19 sets, daily range): BP systolic 77–125; BP diastolic 33–70
[2020-07-19 04:37] LABS: HEMOGLOBIN 9.5 g/dL (13.5-17.5); MCH 30.3 pg (26.0-34.0); MCHC 32.8 g/dL (31.0-37.0); MCV 92.4 fL (80.0-100.0); RBC 3.14 10x6/uL (4.20-6.10); RDW 14.2 % (11.5-14.5); WBC 7.9 10x3/uL (4.8-10.8)
--- NOTE | 2020-07-19 04:50 | NUR ---
RIGHT JUGULAR CENTRAL LINE REMOVED WITH CATHETER TIP INTACT, OFE PRESSURE APPLIED UNTIL HEMOSTASIS ACHIEVED, OCCLUSIVE DRESSING APPLIED, PATIENT TOLERATED WELL, NO S/S HEMOTOMA, WILL CONTINUE TO MONITOR.
[2020-07-19 04:54] LABS: ALBUMIN 2.4 g/dL (3.4-5.0); ALKALINE PHOSPHATASE 136 U/L (30-120); ALT (SGPT) 64 U/L (10-68); BILIRUBIN - TOTAL 0.83 mg/dL (0.2-1.3); CALC OSMOLALITY 276 mosm/kg (275-300); CALCIUM 8.5 mg/dL (8.5-10.1); CARBON DIOXIDE 28.1 mmol/L (21.0-32.0); CHLORIDE - SERUM 101 mmol/L (98-107); GLUCOSE 118 mg/dL (74-106); POTASSIUM - SERUM 4.1 mmol/L (3.5-5.1); PROTEIN - SERUM 6.2 g/dL (6.4-8.2); SODIUM 137 mmol/L (136-145); UREA NITROGEN 18 mg/dL (7-18); eGFR NON AFRICAN AMERICAN 79 mL/min (90-120)
[2020-07-20] VITALS (7 sets, daily range): BP systolic 93–129; BP diastolic 42–62
[2020-07-20 05:07] LABS: HEMATOCRIT 32.4 % (42.0-54.0); HEMOGLOBIN 10.4 g/dL (13.5-17.5); MCH 30.1 pg (26.0-34.0); MCHC 32.1 g/dL (31.0-37.0); MCV 93.6 fL (80.0-100.0); RBC 3.46 10x6/uL (4.20-6.10); RDW 14.3 % (11.5-14.5)
[2020-07-20 05:24] LABS: WBC 10.5 10x3/uL (4.8-10.8)
[2020-07-20 05:31] LABS: % SATURATION 27 % (15-55); IRON 60 ug/dl (35-150); TOTAL IRON BIND CAPACITY 221 ug/dl (260-445); UNSAT IRON BIND CAPACITY 161 ug/dl (150-375)
[2020-07-20 05:44] LABS: ALBUMIN 2.9 g/dL (3.4-5.0); ANION GAP 13.5 mmol/L (8-16); BILIRUBIN - TOTAL 1.17 mg/dL (0.2-1.3); CALCIUM 8.7 mg/dL (8.5-10.1); CARBON DIOXIDE 27.3 mmol/L (21.0-32.0); CREATININE - SERUM 1.2 mg/dL (0.6-1.3); POTASSIUM - SERUM 3.8 mmol/L (3.5-5.1); PROTEIN - SERUM 6.9 g/dL (6.4-8.2)
--- NOTE | 2020-07-20 08:06 | TEE ---
PATIENT:ALBERTO CARRILLO MEDICAL RECORD: [id number] LOCATION:[place] [address] AGE OF PATIENT: 69 ADMISSION DATE: 07/14/20 SEX: M REFERRING PHYSICIAN: INTERPRETING PHYSICIAN: MARY URBINA MD TRANSESOPHAGEAL ECHOCARDIOGRAM Date: 07/14/20 RAMON CHARGE Y INDICATIONS: CABG PREMEDICATIONS: PATIENT'S RESPONSE PROCEDURE DOPPLER MEASUREMENTS: LVIT LA PA RA LVOT RVOT Asc. Ao AV Gradient Peak AV Mean AV Area MV Gradient Peak MV Mean MV Area INTERPRETATION: Doppler: 2-D: COLOR FLOW DOPPLER NORMAL SALINE STUDY: MISCELLANOUS: DIAGNOSIS: PLAN: Forging Die Sinker:3 Dr. Fontaine Adjunct Lecturer: Paola LLANES COMMENTS: DATE OF SERVICE: PROCEDURE: Intraoperative RAMON. FINDINGS: Preop shows normal LV wall motion, normal wall thickening, EF is 55%. Aortic valve is sclerotic. No evidence of stenosis by Doppler interrogation. Left atrium is normal. Mitral valve is normal. Trace MR. Postop, normal LV wall motion and wall thickening. Estimated EF 55%. Aortic TRANSESOPHAGEAL ECHOCARDIOGRAM REPORT [id number] ALBERTO CARRILLO valve is sclerotic. No evidence of stenosis by Doppler interrogation. Left atrium appears normal. Mitral valve appears normal. Trace MR. Right-sided chambers are grossly normal. Trace TR. TRANSINT:[id number] Voice Confirmation ID: [id number] DOCUMENT ID: [id number] at [id number] CC: [id number] DICTATION DATE: 07/18/20 0912 ELECTRIC GOLF CART REPAIRERS: 07/19/20 0111 ADM IN [place] [address] [place] [address]
--- NOTE | 2020-07-20 12:16 | NUR ---
Nutrition Follow-up: POD 6 CABG. Eating well. Noted plans to d/c soon. Diet: Cardiac, Carb Consistent PO intake: 50-100% Wt: 243# (07/20) Labs noted: Na 135, Glu 117, Alb 2.9 Meds noted: Linzess, Micro K, Glucophage, Senokot, Colace, Zofran -RD follow-up: 07/22
[2020-07-20] MEDS ORDERED: COZAAR50 MG PO (14:59)
[2020-07-20] MEDS ORDERED: AMIODARONE HCL200 MG PO (15:00)
[2020-07-20] MEDS ORDERED: PERCOCET 5-3251 TAB PO (15:04)
== END 2020-07-20 18:30 | disposition home or self-care (01) | DRG 236 ==
LOC: D.CVICU 07-14 04:55 → D.SDCHOLD 07-14 04:55 → D.CVICU 07-14 12:15
PROVIDERS: Internal Medicine Pulmonary Disease; ADMIT Thoracic Surgery (Cardiothoracic Vascular Surgery); ATTEND Thoracic Surgery (Cardiothoracic Vascular Surgery)
PROC: 021109W Bypass Coronary Artery, Two Arteries from Aorta with Autologous Venous Tissue, Open Approach (ICD-10-PCS; 2020-07-14)
PROC: 06BP4ZZ Excision of Right Saphenous Vein, Percutaneous Endoscopic Approach (ICD-10-PCS; 2020-07-14)
PROC: 055 Upper Veins, Destruction (ICD-10-PCS; 2020-07-14)
PROC: 5A1221Z Performance of Cardiac Output, Continuous (ICD-10-PCS; 2020-07-14)
PROC: 02100Z9 Bypass Coronary Artery, One Artery from Left Internal Mammary, Open Approach (ICD-10-PCS; principal; 2020-07-14 07:30)
DX: I25.10 Atherosclerotic heart disease of native coronary artery without angina pectoris (principal); J44.9 Chronic obstructive pulmonary disease, unspecified; I48.91 Unspecified atrial fibrillation; Z86.73 Personal history of transient ischemic attack (TIA), and cerebral infarction without residual deficits; E11.40 Type 2 diabetes mellitus with diabetic neuropathy, unspecified; K58.9 Irritable bowel syndrome, unspecified; F41.9 Anxiety disorder, unspecified; K21.9 Gastro-esophageal reflux disease without esophagitis; I10 Essential (primary) hypertension; E11.51 Type 2 diabetes mellitus with diabetic peripheral angiopathy without gangrene; Z87.891 Personal history of nicotine dependence

== ENCOUNTER → 2020-08-10 08:44 | Outpatient (CLI) | payer MEDICARE, OTHER ==
[2020-07-15 10:44] VITALS: BMI 31.8
[~2020-08-10 08:44] MED LIST changes: +AMIODARONE HCL200 MG PO; +COZAAR50 MG PO; +PERCOCET 5-3251 TAB PO
[2020-08-10 09:14] LABS: BASOPHILS 0.9 % (0-2); EOSINOPHILS 2.9 % (0-7); HEMATOCRIT 39.2 % (42.0-54.0); HEMOGLOBIN 12.8 g/dL (13.5-17.5); LYMPHOCYTES 12.1 % (15-50); MCH 29.1 pg (26.0-34.0); MCHC 32.7 g/dL (31.0-37.0); MCV 88.9 fL (80.0-100.0); MEAN PLATELET VOLUME 5.6 fL (7.4-10.4); MONOCYTES 9.1 % (2-11); PLATELET COUNT 250 10x3/uL (130-400); RBC 4.41 10x6/uL (4.20-6.10); WBC 8.8 10x3/uL (4.8-10.8)
[2020-08-10 09:25] LABS: ANION GAP 13.3 mmol/L (8-16); CALCIUM 9.5 mg/dL (8.5-10.1); CARBON DIOXIDE 28.7 mmol/L (21.0-32.0); CREATININE - SERUM 1.1 mg/dL (0.6-1.3)
== END | disposition home or self-care (01) ==
LOC: D.RAD 08:44
PROVIDERS: ATTEND Thoracic Surgery (Cardiothoracic Vascular Surgery)
DX: Z95.1 Presence of aortocoronary bypass graft (principal)